=== PATIENT | female | born 1985 | race Caucasian/White ===

== ENCOUNTER 2020-08-24 05:32 | Day surgery (SDC) | payer BC, MEDICAID ==
[2020-08-17 15:14] LABS: CLARITY,URINE SLIGHTLY CLOUDY (Clear); COLOR,URINE YELLOW (Yellow); GLUCOSE, URINE NEGATIVE (Neg); KETONES,URINE NEGATIVE (Neg); LEUKOCYTE ESTERASE ,URINE LARGE (Neg); NITRITES, URINE NEGATIVE (Neg); OCCULT BLOOD,URINE NEGATIVE (Neg); PROTEIN,URINE NEGATIVE (Neg); UROBILINOGEN,URINE 0.2 E.U/dL (0.2-1.0)
[2020-08-17 15:15] LABS: UA COLLECTION TYPE CLN CATCH MIDSTREAM
[2020-08-17 15:16] LABS: BASOPHILS # (AUTO) 0.1 X10'3 (0-0.2); BASOPHILS % (AUTO) 0.6 % (0-1); EOSINOPHILS # (AUTO) 0.1 X10'3 (0-0.9); LYMPHOCYTES # (AUTO) 3.1 X10'3 (1.1-4.8); LYMPHOCYTES % (AUTO) 25.5 % (21-51); MEAN CORPUSCULAR HGB CONC 34.5 g/dL (33.0-36.5); MEAN CORPUSCULAR VOLUME 92.6 FL (78-98); MEAN PLATELET VOLUME 8.9 FL (7.4-10.4); MONOCYTES # (AUTO) 0.8 X10'3 (0-0.9); MONOCYTES % (AUTO) 6.5 % (2-12); NEUTROPHILS # (AUTO) 8.1 X10'3 (1.8-7.7); NEUTROPHILS % (AUTO) 66.4 % (42-75); PRE OP HEMATOCRIT 41.7 % (35.0-45.0); PRE OP HEMOGLOBIN 14.4 g/dL (12.0-16.0); PRE OP PLATELET COUNT 351 X10'3 (140-440)
[2020-08-17 15:20] LABS: MUCUS STRANDS MODERATE /LPF (Neg); SQUAMOUS EPITHELIAL CELL,UR MANY /LPF (FEW)
[2020-08-17 15:21] LABS: WBC,URINE 20-30 /HPF (0-4)
[2020-08-17 15:25] LABS: BACTERIA,URINE 1+ /HPF (Neg); RBC,URINE 0-2 /HPF (0-2); TRANSITIONAL EPI CELLS,URINE FEW /HPF
[2020-08-17 15:34] LABS: ALBUMIN 3.7 G/DL (3.4-5.0); ALBUMIN/GLOBULIN RATIO 0.9 (1.1-1.5); ALKALINE PHOSPHATASE 69 IU/L (46-116); BLOOD UREA NITROGEN 10 MG/DL (7-18); BUN/CREATININE RATIO 13.2 (6.6-38.0); CALCIUM 9.4 MG/DL (8.5-10.1); CHLORIDE 108 MMOL/L (99-107); CREATININE 0.76 MG/DL (0.40-0.90); PRE OP ALT 24 U/L (30-65); PRE OP ANION GAP 11 (8-16); PRE OP AST 10 U/L (10-37); PRE OP BILIRUB, TOTAL 0.4 MG/DL (0.0-1.0); PRE OP GLUCOSE 135 MG/DL (70-104); PRE OP POTASSIUM 3.8 MMOL/L (3.4-5.1); PRE OP SODIUM 141 MMOL/L (135-145); TOTAL CARBON DIOXIDE 21.6 MMOL/L (24-32); TOTAL PROTEIN 7.6 G/DL (6.4-8.2); eGFR 88 ML/MIN
[2020-08-17 15:55] LABS: HCG SERUM QL NEGATIVE
[2020-08-24] VITALS (23 sets, daily range): BP systolic 77–144; BP diastolic 31–83
[~2020-08-24] VITALS: Ht 175.3 cm; Wt 99.8 kg
[~2020-08-24 05:32] MED LIST: LISI-790 PO; PRAV10TA39 PO; TOP100T PO; ceFOXitin 2GM-NS 100mL ADDvant 100 ML IV ONE; famotidine 20mg tablet PO ONE
[2020-08-24] MEDS: ringers solution, lacted 1,000 ML IV SCH ×4 (06:01→18:00)
[2020-08-24] MEDS ORDERED: BUPIVAcaine/PF 2.5 mg/ml (0.25%) 30ml vial ONE (06:49)
[2020-08-24] MEDS ORDERED: clindamycin phosphate 40gm vag cream ONE (06:49)
[2020-08-24] MEDS ORDERED: epiNEPHrine 1 mg/ml 30ml MDV ONE (06:49)
[2020-08-24] MEDS ORDERED: neomy sulf/polymyxin B sulf. GU irrigation 1ml amp IR ONE (06:50)
[2020-08-24] MEDS ORDERED: vasoPRESSIN 20 units/ml inj. ONE (06:50)
[2020-08-24] MEDS ORDERED: meperidine/PF 25mg/ml syringe IV PRN ×3 (07:30)
[2020-08-24] MEDS ORDERED: morphine 4 MG/ML inj SYRINge IV PRN (07:30)
[2020-08-24] MEDS ORDERED: ondansetron/PF 4mg/2ml inj IV PRN ×2 (07:30→10:00)
[2020-08-24] MEDS ORDERED: proCHLORperazine 10 MG/2 ml inj IV PRN (07:30)
[2020-08-24] MEDS ORDERED: ringers solution, lacted 1,000 ML IV SCH (07:30)
[2020-08-24] MEDS ORDERED: morphine 2 MG/ML inj. syringe IV PRN (07:30)
[2020-08-24] MEDS ORDERED: midazolam 1 mg/ML 2ml injection ONE (07:36)
[2020-08-24] MEDS ORDERED: fentaNYL /PF 50mcg/ml 5ml ampule ONE (07:36)
[2020-08-24] MEDS ORDERED: rocuronium 10mg/ml inj IV ONE ×2 (07:38→08:54)
[2020-08-24] MEDS ORDERED: propofol inj 20 ML IV ONE (07:38)
[2020-08-24] MEDS ORDERED: LIDOcaine 2% (20mg/ml) 5ml vial ONE (07:38)
[2020-08-24] MEDS ORDERED: dexamethasone sod phosphate 4mg/ml inj. ONE (07:38)
[2020-08-24] MEDS ORDERED: ondansetron/PF 4mg/2ml inj ONE (07:38)
[2020-08-24] MEDS ORDERED: BUPIVAcaine/PF 2.5 mg/ml (0.25%) 30ml vial IJ ONE (09:21)
[2020-08-24] MEDS ORDERED: ketorolac trometh. 30mg/ml inj. IV PRN (10:00)
[2020-08-24] MEDS ORDERED: normal saline 500ml IV soln 500 ML IV PRN (10:00)
[2020-08-24] MEDS ORDERED: diphenhydrAMINE 50 mg/ml inj IV PRN (10:00)
[2020-08-24] MEDS ORDERED: temazepam 15mg capsule PO PRN (10:00)
[2020-08-24] MEDS ORDERED: metoclopramide 5 mg/ml inj IV PRN (10:00)
[2020-08-24] MEDS ORDERED: HYDROcodone/acetaminophen 10/325mg tab PO PRN ×2 (10:00)
[2020-08-24] MEDS ORDERED: LORazepam 2 mg/ml vial IV PRN (10:00)
[2020-08-24] MEDS ORDERED: magnesium hydroxide 30ml (MOM) UD suspension PO PRN (10:00)
[2020-08-24] MEDS ORDERED: ketorolac trometh. 30mg/ml inj. ONE (10:06)
--- NOTE | 2020-08-24 10:16 | NUR ---
Received from OR via [facility], accompanied by Anesthesiologist MARK and report given by Anesthesiolgist. PT WITH A 20G LEFT WRIST, WITH LR EUNNING AT 100ML/HR. VSS. THREE INCISIONS IN LOWER ABD. PT HAS MURRY CATHETER. Addendum: 08/24/20 at 1039 by Mandie Smart RN, RN Amended: Links added.
[2020-08-24] MEDS ORDERED: HYDROmorphone/PF 0.2 MG/ML SYRINGE IV PRN (10:35)
[2020-08-24] MEDS: HYDROmorphone/PF 0.2 MG/ML SYRINGE IV PRN ×2 (10:40→11:19)
--- NOTE | 2020-08-24 11:36 | NUR ---
PATIENT HAS MET ALL CRITERIA FOR TRANSFER TO THE SURGICAL/[facility]/PCU/ORTHO/ICU FLOOR. VSS. DRESSINGS INTACT. BED LOW, CALL LIGHT PRESENT AND 2 RAILS UP. RN PRESENT TO ACCEPT CARE OF PATIENT AND REPORT HAS BEEN CALLED. ALL QUESTIONS ANSWERED TO ACCEPTING ARTEMIO BARRIENTOS. 2 BAGS OF BELONGINGS SENT WITH PATIENT. Addendum: 08/24/20 at 1155 by Mandie Smart RN RN Amended: Links added.
--- NOTE | 2020-08-24 11:40 | NUR ---
RECD REPORT FROM SERGE ULLOA
--- NOTE | 2020-08-24 18:10 | NUR ---
Patient in room [facility]. I have received report from ARTEMIO Razo and had the opportunity to ask questions and assume patient care.
--- NOTE | 2020-08-24 18:25 | NUR ---
Problems reprioritized. Patient report given, questions answered & plan of care reviewed with GONSALO ULLOA.
[2020-08-24] MEDS: docusate sod 100mg capsule PO SCH (20:58)
[2020-08-24] MEDS: topiramate 100mg tablet PO SCH (20:58)
[2020-08-25] MEDS: ringers solution, lacted 1,000 ML IV SCH ×3 (02:04→11:05)
[2020-08-25 03:28] VITALS: BP 110/59
--- NOTE | 2020-08-25 05:07 | NUR ---
Removed FC, patient tolerated well. Hat placed in toilet, educated in regards to urinary monitoring plans.
[2020-08-25 06:18] LABS: BASOPHILS # (AUTO) 0.1 X10'3 (0-0.2); BASOPHILS % (AUTO) 0.4 % (0-1); EOSINOPHILS # (AUTO) 0.2 X10'3 (0-0.9); HEMATOCRIT 33.9 % (35.0-45.0); HEMOGLOBIN 11.5 g/dl (12.0-16.0); LYMPHOCYTES # (AUTO) 3.2 X10'3 (1.1-4.8); LYMPHOCYTES % (AUTO) 25.6 % (21-51); MEAN CORPUSCULAR HEMOGLOBIN 31.7 PG (27.0-31.0); MEAN CORPUSCULAR HGB CONC 33.8 g/dL (33.0-36.5); MEAN CORPUSCULAR VOLUME 93.6 FL (78-98); MEAN PLATELET VOLUME 8.3 FL (7.4-10.4); MONOCYTES # (AUTO) 0.8 X10'3 (0-0.9); MONOCYTES % (AUTO) 6.4 % (2-12); NEUTROPHILS # (AUTO) 8.3 X10'3 (1.8-7.7); NEUTROPHILS % (AUTO) 65.6 % (42-75); PLATELET COUNT 312 X10'3 (140-440); RED BLOOD COUNT 3.62 X10'6 (4.20-5.60); WHITE BLOOD COUNT 12.6 X10'3 (4.5-11.0)
--- NOTE | 2020-08-25 06:36 | NUR ---
Problems reprioritized. Patient report given, questions answered & plan of care reviewed with ARTEMIO Rodriguez.
[2020-08-25 06:40] LABS: ALBUMIN 2.7 G/DL (3.4-5.0); ANION GAP 10 (8-16); BLOOD UREA NITROGEN 12 MG/DL (7-18); BUN/CREATININE RATIO 16.2 (6.6-38.0); CALCIUM 8.7 MG/DL (8.5-10.1); CHLORIDE 111 MMOL/L (99-107); CREATININE 0.74 MG/DL (0.40-0.90); GLUCOSE 137 MG/DL (70-104); POTASSIUM 3.6 MMOL/L (3.5-5.1); SODIUM 144 MMOL/L (135-145); TOTAL CARBON DIOXIDE 23.1 MMOL/L (24-32); eGFR 90 ML/MIN
[2020-08-25 07:00] VITALS: BP 109/61
--- NOTE | 2020-08-25 07:08 | NUR ---
Patient in room [facility]. I have received report from Maricruz Underwood RN and had the opportunity to ask questions and assume patient care.
[2020-08-25] MEDS ORDERED: atorvastatin 10mg tablet PO SCH (08:00)
[2020-08-25] MEDS ORDERED: enoxaparin 40mg/0.4ml syringe SQ SCH (08:00)
[2020-08-25] MEDS ORDERED: lisinopril 5mg tablet PO SCH (08:00)
[2020-08-25] MEDS: topiramate 100mg tablet PO SCH (08:40)
[2020-08-25] MEDS: docusate sod 100mg capsule PO SCH (08:40)
--- NOTE | 2020-08-25 08:50 | NUR ---
Bladder scanned patient post void residual 125 after voiding 200nl's
[2020-08-25 11:00] VITALS: BP 112/58
--- NOTE | 2020-08-25 11:02 | NUR ---
Bladder scanned patient showed 44ml's left in bladder after voiding 300 ml's
--- NOTE | 2020-08-25 13:04 | NUR ---
Patients discharge instructions reviewed with patient and patient verbalized understanding. Patients IV dc'd cannula intact. Patient states she has all her belongings, at bedside. Patient was escorted to lobby by Angel JORDAN where patient's assisted her to vehicle.
== END 2020-08-25 13:08 | disposition home or self-care (01) ==
LOC: PRE-OP 05:32 → SUR 3N 09:56 → PAS 08-25 13:08
PROVIDERS: ATTEND Obstetrics & Gynecology Obstetrics
DX: N83.8 Other noninflammatory disorders of ovary, fallopian tube and broad ligament (principal); R10.2 Pelvic and perineal pain; N94.10 Unspecified dyspareunia; D25.9 Leiomyoma of uterus, unspecified; Z20.822 Contact with and (suspected) exposure to COVID-19
CPT/HCPCS: 36415; 58552; 80048; 80053; 81001; 82948; 84703; 85025; 86885; 86900; 86901; 87081; 93308; J0694; J1100; J1170; J1885; J2001; J2175; J2250; J2405; J2704; J3010; J3490; J7120; U0003; U0005; A4314; A4618; A7000; G0378; J0171; J1650